=== PATIENT | male | born 1985 | race Caucasian/White ===

== ENCOUNTER 2016-11-22 12:06 | Emergency (ER) | payer BC ==
--- NOTE | ~2016-11-22 | ER ---
PATIENT'S NAME: VALDEZ ROMAN [facility] AGE: 31 Y [address] ROOM: [place] [id number] LOCATION: [facility] ADMIT DATE: 11/22/2016 ER/Outpatient Report DISCHARGE DATE: 11/22/2016 FAMILY PHYSICIAN: Physician, Unknown ATTENDING PHYSICIAN: Bg Wall Time of Arrival: 1205 hours. Time of Exam: 1205 hours. CHIEF COMPLAINT: Numbness. HISTORY OF PRESENT ILLNESS: The patient reports that just prior to arrival they were coming [place] from the [place] and he began having right-sided facial numbness, numbness into the right arm and leg. States he felt confused, he was trying to talk to his brother-in- law and was not making any sense. Upon arrival to the ER, he states the symptoms are improving. The episode lasted approximately 5 minutes. He did have some spots in front of his eyes, but that is improving; otherwise, no major vision changes. Reports they have been camping, he did drink a fair amount of alcohol last night, states he has been drinking water throughout the camping trip. ALLERGIES: NO KNOWN ALLERGIES. CURRENT MEDICATIONS: BuSpar. PAST MEDICAL HISTORY: Anxiety. PAST SURGERIES: Negative. SOCIAL HISTORY: Denies use of tobacco or drugs. States he does drink beer on a daily basis. Reports Dr. Calderon is his primary provider. REVIEW OF SYSTEMS: All negative other than those mentioned in the HPI. PHYSICAL EXAMINATION: VITAL SIGNS: He states he weighs 260 pounds, blood pressure 171/95, pulse of 118, respirations 20, and O2 saturation is 100% on room air. PATIENT'S NAME: VALDEZ ROMNA [facility] AGE: 31 Y [address] ROOM: [place], [place] [address] LOCATION: [facility] ADMIT DATE: 11/22/2016 ER/Outpatient Report DISCHARGE DATE: 11/22/2016 FAMILY PHYSICIAN: Physician, Unknown ATTENDING PHYSICIAN: Bg Wall GENERAL: He is awake, alert, and oriented x4. SKIN: [place], warm, and dry. RESPIRATIONS: Even and nonlabored. HEENT: Pupils are equal and reactive to light. Extraocular movement is intact. Negative nystagmus. Oropharynx is clear. He is able to stick his tongue out in a straight manner. He is able to raise his eyebrows in a uniform manner. Normal smile. TMs are dull. Nasal is boggy. NECK: Supple. No lymphadenopathy. LUNGS: Lung sounds are clear throughout. HEART: Regular rate and rhythm. ABDOMEN: Soft, nondistended. Bowel sounds are present. MUSCULOSKELETAL: He has strong shoulder shrugs. He has good hand grasps. He has strong peripheral pulses bilaterally. No peripheral edema noted. He was able to stand from the citrus picker to the wheelchair and then from the wheelchair to the cart without any difficulty. SKIN: He does appear to have a slight sunburn. EMERGENCY DEPARTMENT COURSE: Saline lock was initiated. Fluids of normal saline were started. Lab work was drawn. EKG was completed, it is within normal limits. CBC is within normal limits. Chem panel is within normal limits. Cardiac enzymes are negative. Upon re-evaluating the patient, he states that he has had prior episodes of this nature. He did see Dr. Calderon, that is when he got started on the BuSpar for anxiety. He states the episodes of numbness are occurring more frequently. I did do a CT of his head, it was negative per the radiologist. IMPRESSION: 1. Near syncopal type episode. 2. Facial numbness. 3. Confusion. PLAN: Discussed the results of the lab and CT with the patient. Fluids were completed. We will allow him to go home. Rest. Continue drinking fluids. Nonalcoholic beverages. Tylenol or ibuprofen as needed. Follow up with Dr. Calderon in 2-3 days. He verbalized understanding. CHEYANNE WHITAKER APRN FOR MD WILFRIDO LEHMAN/kim PATIENT'S NAME: VALDEZ ROMAN [facility] AGE: 31 Y [address] ROOM: [place], [place] [address] LOCATION: ED ADMIT DATE: 11/22/2016 ER/Outpatient Report DISCHARGE DATE: 11/22/2016 FAMILY PHYSICIAN: Physician, Unknown ATTENDING PHYSICIAN: Bg Wall /[id number] d: 11/22/16 1833 t: 12/01/16 1934, OUTPATIENT REPORT
[2016-11-22 12:21] LABS: BASOPHIL % 0.4 %; EOSINOPHIL # 0.2 K/uL (0.0-0.5); EOSINOPHIL % 2.1 %; HEMATOCRIT 42.8 % (37.0-53.0); HEMOGLOBIN 14.3 g/dL (12.0-17.0); IMMATURE GRANULOCYTE % 0.4 %; LYMPHOCYTE # 4.6 K/uL (0.8-4.0); LYMPHOCYTE % 42.6 %; MCH 30.6 pg (27.0-34.0); MCHC 33.4 gm/dL (32.0-36.5); MCV 91.6 fl (83.0-98.0); MONOCYTE # 1.1 K/uL (0.0-1.0); MONOCYTE % 9.9 %; MPV 8.8 fl (9.4-12.4); NEUTROPHIL # (ANC) 4.8 K/uL (1.4-9.0); NEUTROPHIL % 44.6 %; NRBC % 0 /100WBC (0-0.00); PLATELET COUNT 264 K/uL (150-450); RBC 4.67 M/uL (4.00-6.00); RDW-CV 12.6 % (11.9-14.6); WBC 10.8 K/uL (4.0-11.0)
[2016-11-22 12:32] LABS: INR - (THERAPEUTIC) 0.97 (0.92-1.07); PROTIME 10.2 SECONDS (9.8-11.4); PTT 27 SECONDS (25-32)
[2016-11-22 12:42] LABS: ALBUMIN 3.7 gm/dL (3.5-5.0); ALK PHOS 84 IU/L (33-138); ALT 35 IU/L (12-78); BLOOD UREA NITROGEN 19 mg/dL (6-24); CALCIUM 8.7 mg/dL (8.5-10.5); CHLORIDE 109 mMol/L (96-110); CO2 19 mMol/L (22-32); CPK 249 IU/L (35-332); CREATININE 1.1 mg/dL (0.6-1.3); ESTIMATED GFR (MDRD EQUATION) > 60; SODIUM 142 mMol/L (135-145); TOTAL BILIRUBIN 0.2 mg/dL (0.0-1.5); TOTAL PROTEIN 7.5 g/dL (6.0-8.4)
[2016-11-22 12:47] LABS: ANION GAP 17.2 (10.0-19.0); AST 17 IU/L (10-40); POTASSIUM 3.2 mMol/L (3.7-5.1)
== END 2016-11-22 14:10 | disposition disaster alternative care site (69) ==
LOC: GMED 12:06
PROVIDERS: Nurse Practitioner Family
DX: R55 Syncope and collapse (principal); R20.0 Anesthesia of skin; R41.0 Disorientation, unspecified; F41.9 Anxiety disorder, unspecified; E66.9 Obesity, unspecified; Z79.899 Other long term (current) drug therapy
CPT/HCPCS: J7030